=== PATIENT | female | born 1950 | race Caucasian/White ===

== ENCOUNTER 2017-06-17 11:58 | Emergency (ER) | payer MEDICAID, MEDICARE, OTHER ==
[2017-06-17 12:31] VITALS: BP 146/84
--- NOTE | 2017-06-17 17:04 | UC ---
Kevin Nassar Stephanie, scribed for Jerod Narayan MD on 06/17/17 at 1502 . FLU HPI - HPI Summary HPI Summary: The pt is a 67 y/o F presenting to with c/o sore throat that began 1.5 weeks ago. Symptoms include productive cough with green/yellow mucus, rhinorrhea, chest congestion, diaphoresis, wheezing and sinus pressure. The pt denies CP. - History of Current Complaint Chief Complaint: UCRespiratory Stated Complaint: SORE THROAT Time Seen by Provider: 06/17/17 14:32 Hx Obtained From: Patient ?: No Onset/Duration: Lasting Weeks - 1.5, Still Present Pain Intensity: 0 Pain Scale Used: 0-10 Numeric Associated Signs & Symptoms: Positive: Cough - productive with green/yellow mucus. Negative: Fever - Allergy/Home Medications Allergies/Adverse Reactions: Allergies Allergy/AdvReac Type Severity Reaction Status Date / Time No Known Allergies Allergy Verified 06/17/17 12:32 PMH/Surg Hx/FS Hx/Imm Hx Endocrine History: Diabetes Cardiovascular History: Hypertension Respiratory History: Other - Negative: COPD, asthma Other Respiratory History: . - Surgical History Surgical History: Yes Surgery Procedure, Year, and Place: tonsillectomy. right breast lumpectomy benign. vulvar cancer removal (skin cancer) - Family History Known Family History: Positive: Hypertension, Other - lung cancer - Social History Occupation: Retired Lives: At [facility] [employer] Alcohol Use: None Substance Use Type: None Smoking Status (MU): Never Smoked Tobacco Type: Cigarettes Amount Used/How Often: 1 ppd Length of Time of Smoking/Using Tobacco: 44 years Have You Smoked in the Last Year: Yes When Did the Patient Quit Smoking/Using Tobacco: 11/09/13 - Immunization History Most Recent Influenza Vaccination: 2017 Most Recent Pneumonia Vaccination: none Review of Systems Constitutional: Negative Skin: Other - diaphoresis Eyes: Negative ENT: Nasal Discharge, Sinus Pain/Tenderness Respiratory: Cough - productive with green/yellow mucus., Other - wheezing Cardiovascular: Other - chest congestion Gastrointestinal: Negative Genitourinary: Negative Motor: Negative Neurovascular: Negative Musculoskeletal: Negative Neurological: Negative Psychological: Negative All Other Systems Reviewed And Are Negative: Yes Physical Exam Triage Information Reviewed: Yes Vital Signs: Initial Vital Signs Temp 97.0 F 06/17/17 12:26 Pulse 107 06/17/17 12:26 Resp 14 01/21/18 12:26 BP 146/84 06/17/17 12:26 Pulse Ox 98 06/17/17 12:26 Vital Signs Reviewed: Yes - Additional Comments General: well-appearing, no pain distress Skin: warm, color reflects adequate perfusion, dry Head: normal Eyes: EOMI, [place] ENT: rhinorrhea Neck: supple, nontender Respiratory: CTA, breath sounds present Cardiovascular: RRR Abdomen: soft, nontender Bowel: present Musculoskeletal: normal, strength/ROM intact Neurological: normal, sensory/motor intact, A&O x3 Psychological: affect/mood appropriate Flu Course/Dx - Course Course Of Treatment: Medications reviewed. - Differential Dx/Diagnosis Provider Diagnoses: SINUSITIS Discharge - Discharge Plan Condition: Stable Disposition: HOME Prescriptions: Amoxicillin/Clavulanate TAB* [Augmentin TAB 875*] 875 mg PO BID #20 tab Patient Education Materials: Sinusitis (ED) Referrals: Denis Snell MD [Primary Care Provider] - Additional Instructions: FOLLOW UP WITH YOUR DOCTOR. GET RECHECKED FOR ANY WORSENING OF YOUR CONDITION OR QUESTIONS OR CONCERNS. The documentation as recorded by the Kevin gomez Stephanie accurately reflects the service I personally performed and the decisions made by me, Jerod Narayan MD.
== END 2017-06-17 14:42 | disposition home or self-care (01) ==
LOC: UCEAST 11:58
DX: J32.9 Chronic sinusitis, unspecified (principal); R61 Generalized hyperhidrosis; E11.9 Type 2 diabetes mellitus without complications; I10 Essential (primary) hypertension; Z87.891 Personal history of nicotine dependence
CPT/HCPCS: 99212; G0463

== ENCOUNTER 2018-01-30 17:36 | Emergency (ER) | payer OTHER ==
[2018-01-30 17:44] VITALS: BP 160/120
[2018-01-30] MEDS ORDERED: Dexamethasone TAB* 4 MG PO ONE (17:51)
--- NOTE | 2018-01-30 17:53 | UC ---
Respiratory Complaint HPI - HPI Summary HPI Summary: A 68 y/o female presents to [facility] c/o sore throat and cough reaching 6/10 in severity. As per triage, "c/o sore throat and cough for 2 days. Repeat BP 177/ 118". According to the patient, she has been experiencing sore throat (worse in the AM) coupled with productive cough for the past couple days. She denies any runny nose, SOB or CP. She is unsure of fever. She stated that no one is sick at home. PMHx of DM and HBP. SHx of non-smoker and retiree from [employer]. Currently on metformin and other medications. - History of Current Complaint Chief Complaint: UCRespiratory Stated Complaint: THROAT PAIN Time Seen by Provider: 01/30/18 17:45 Hx Obtained From: Patient Onset/Duration: Sudden Onset, Lasting Days, Still Present Timing: Constant Severity Initially: Moderate Severity Currently: Moderate Pain Intensity: 6 Pain Scale Used: 0-10 Numeric Character: Cough: Productive Aggravating Factors: Nothing Alleviating Factors: Nothing Associated Signs And Symptoms: Positive: Negative - Allergies/Home Medications Allergies/Adverse Reactions: Allergies Allergy/AdvReac Type Severity Reaction Status Date / Time No Known Allergies Allergy Verified 01/30/18 17:44 PMH/Surg Hx/FS Hx/Imm Hx Endocrine History: Diabetes - POSITIVE Cardiovascular History: Hypertension - POSITIVE - Surgical History Surgical History: Yes Surgery Procedure, Year, and Place: tonsillectomy. right breast lumpectomy benign. vulvar cancer removal (skin cancer) - Family History Known Family History: Positive: Hypertension, Other - lung cancer - Social History Alcohol Use: None Substance Use Type: None Smoking Status (MU): Never Smoked Tobacco Type: Cigarettes Amount Used/How Often: 1 ppd Length of Time of Smoking/Using Tobacco: 44 years Have You Smoked in the Last Year: Yes When Did the Patient Quit Smoking/Using Tobacco: 11/09/13 - Immunization History Most Recent Influenza Vaccination: 2017 Most Recent Pneumonia Vaccination: none Review of Systems Constitutional: Negative Skin: Negative Eyes: Negative ENT: Sore Throat Respiratory: Cough Cardiovascular: Negative Gastrointestinal: Negative Genitourinary: Negative Motor: Negative Neurovascular: Negative Musculoskeletal: Negative Neurological: Negative Psychological: Negative Is Patient Immunocompromised?: No All Other Systems Reviewed And Are Negative: Yes Physical Exam - Summary Physical Exam Summary: Appearance: Well appearing, no pain distress Skin: warm, dry, reflects adequate perfusion Head/face: normal Eyes: EOMI, [place] ENT: Bilateral TM are gabino, mild throat erythema with yellowish mucous in the back of pharynx. No adenopathy. Neck: supple, non-tender Respiratory: CTA, breath sounds present, lungs are clear, no wheezing, wet sound cough Cardiovascular: tachycardic, pulses symmetrical Abdomen: non-tender, soft Bowel Sounds: present Musculoskeletal: normal, strength/ROM intact Neuro: normal, sensory motor intact, A&Ox3 Triage Information Reviewed: Yes Vital Signs: Initial Vital Signs Temp 98.9 F 01/30/18 17:40 Pulse 99 01/30/18 17:40 Resp 18 01/30/18 17:40 BP 160/120 01/30/18 17:40 Pulse Ox 98 01/30/18 17:40 Vital Signs Reviewed: Yes UC Diagnostic Evaluation - Laboratory O2 Sat by Pulse Oximetry: 98 Respiratory Course/Dx - Course Course Of Treatment: Patient with history of tonsillectomy now with URI symptoms including postnasal drip/pharyngeal mucus likely causing her some sore throat. Diabetic so I will dose only Decadron here for discomfort and then put her on decongestants. She will have her doctor recheck her blood pressure after she is well. - Differential Dx/Diagnosis Differential Diagnosis/HQI/PQRI: Lower Resp Infection, Other - URI Provider Diagnoses: URI and elevated blood pressure. Discharge - Sign-Out/Discharge Documenting (check all that apply): Patient Departure - DISCHARGE All imaging exams completed and their final reports reviewed: No Studies - Discharge Plan Condition: Improved Disposition: HOME Prescriptions: guaiFENesin ER TAB [Mucinex*] 600 mg PO BID PRN #20 tab.er PRN Reason: Congestion Guaifenesin/Pseudoephedrne HCl [Mucinex D ER 600-60 mg Tablet] 1 each PO BID PRN #6 tab.er.12h PRN Reason: Congestion Oxymetazoline 0.05% NASAL SPR* [Afrin 0.05% NASAL SPRAY*] 1 spray BOTH NARES Q12H PRN #1 btl PRN Reason: Congestion Patient Education Materials: Upper Respiratory Infection (ED), Hypertension (ED ) Referrals: Denis Snell MD [Primary Care Provider] - Additional Instructions: Have your blood pressure recheck by your doctor when you're not ill, by next week. Stay well-hydrated. Return with fever, difficulty breathing, worse or other concerns. - Billing Disposition and Condition Condition: IMPROVED Disposition: Home - Attestation Statements Document Initiated by Juan Francisco: Yes Documenting Scribe: Donato Alvarez Provider For Whom Juan Francisco is Documenting (Include Credential): Jonathan Fontanez MD Scribe Attestation: I, Donato Alvarez, scribed for Jonathan Fontanez MD on 01/30/18 at 1854. Scribe Documentation Reviewed: Yes Provider Attestation: The documentation as recorded by the Donato gomez accurately reflects the service I personally performed and the decisions made by me, Jonathan Fontanez MD
== END 2018-01-30 18:15 | disposition home or self-care (01) ==
LOC: UCEAST 17:36
DX: J06.9 Acute upper respiratory infection, unspecified (principal); R03.0 Elevated blood-pressure reading, without diagnosis of hypertension; Z87.891 Personal history of nicotine dependence
CPT/HCPCS: 99212; G0463; J8540

== ENCOUNTER 2019-06-01 14:25 | Emergency (ER) | payer SELFPAY ==
[2019-06-01 14:45] VITALS: BP 156/87
--- NOTE | 2019-06-01 15:06 | UC ---
Hand/Wrist HPI - HPI Summary HPI Summary: Patient is a 69yo female presenting with L wrist pain after she fell backwards this afternoon while jumping rope. Notes pain worse when it happened. Now sharp pain mostly with wrist movement and to touch. Denies radiating pain. Denies numbness and tingling. Denies swelling and bruising. Notes decreased ROM of wrist d/t pain. - History Of Current Complaint Chief Complaint: UCUpperExtremity Stated Complaint: WRIST INJURY Hx Obtained From: Patient Pain Intensity: 8 - Allergies/Home Medications Allergies/Adverse Reactions: Allergies Allergy/AdvReac Type Severity Reaction Status Date / Time No Known Allergies Allergy Verified 06/01/19 14:43 Home Medications: Home Medications Pumpkin Seed Extract/Soy Germ [Azo Bladder Control Capsule] 1 tab PO DAILY PRN 06/01/19 [History Confirmed 06/01/19] PMH/Surg Hx/FS Hx/Imm Hx Cardiovascular History: Hypertension - Surgical History Surgical History: Yes Surgery Procedure, Year, and Place: tonsillectomy. right breast lumpectomy benign. vulvar cancer removal (skin cancer) - Family History Known Family History: Positive: Hypertension, Other - lung cancer - Social History Alcohol Use: None Substance Use Type: None Smoking Status (MU): Never Smoked Tobacco Type: Cigarettes Amount Used/How Often: 1 ppd Length of Time of Smoking/Using Tobacco: 44 years Have You Smoked in the Last Year: Yes When Did the Patient Quit Smoking/Using Tobacco: 11/09/13 - Immunization History Most Recent Influenza Vaccination: 2017 Most Recent Pneumonia Vaccination: none Review of Systems All Other Systems Reviewed And Are Negative: Yes Constitutional: Positive: Negative Skin: Negative: Bruising Respiratory: Positive: Negative Cardiovascular: Positive: Negative Musculoskeletal: Positive: Arthralgia - L wrist, Decreased ROM - L wrist d/t pain. Negative: Edema Neurological: Negative: Paresthesia, Numbness Physical Exam Triage Information Reviewed: Yes Appearance: Well-Appearing, No Pain Distress, Well-Nourished Vital Signs: Initial Vital Signs Temp 98.1 F 06/01/19 14:35 Pulse 109 06/01/19 14:35 Resp 16 06/01/19 14:35 BP 156/87 06/01/19 14:35 Pulse Ox 97 06/01/19 14:35 Vital Signs Reviewed: Yes Eyes: Positive: Conjunctiva Clear ENT: Positive: Hearing grossly normal Neck: Positive: Supple Respiratory Exam: Normal Respiratory: Positive: Lungs clear, Normal breath sounds, No respiratory distress Cardiovascular Exam: Normal Cardiovascular: Positive: RRR, Pulses Normal - strong radial pulses b/l, Brisk Capillary Refill - <2 sec Musculoskeletal: Positive: Strength Intact - 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 L hand Radiology Interpretation Completed By: Radiologist Summary of Radiographic Findings: IMPRESSION: No fracture of left hand is noted. Hand/Wrist Course/Dx - Course Course Of Treatment: Suspected fracture of metaphysis of L radius. I applied sugar tong splint with ortho glass and provided with sling. Instructed patient to keep splint on until follow up and continue with symptomatic treatment Instructed to follow up with ortho as soon as possible for further eval and treatment. Instructed to go to ED with severe pain, numbness, cold extremity, or inability to move the hand/ wrist. Patient voiced understanding and agreed with treatment plan. - Differential Dx/Diagnosis Provider Diagnosis: Closed fracture of metaphysis of distal end of left radius Discharge ED - Sign-Out/Discharge Documenting (check all that apply): Patient Departure All imaging exams completed and their final reports reviewed: Yes - Discharge Plan Condition: Stable Disposition: HOME Patient Education Materials: Wrist Fracture in Adults (ED) Referrals: Ramírez Whitaker MD [Medical Doctor] - As Soon As Possible Additional Instructions: As discussed, your xrays showed a suspected fracture of your wrist. Keep the splint on until you are able to follow up with orthopedics. Rest, ice, and elevate to help alleviate pain and swelling. Follow up with the orthopedic referral listed below as soon as possible for further evaluation and treatment. Go to the emergency room if you experience severe pain, the hand becomes cold and numb, or you are unable to move the hand or wrist. - Billing Disposition and Condition Condition: STABLE Disposition: Home
== END 2019-06-01 16:00 | disposition home or self-care (01) ==
LOC: UCEAST 14:25
DX: S52.592A Other fractures of lower end of left radius, initial encounter for closed fracture (principal); W18.30XA Fall on same level, unspecified, initial encounter; Y93.56 Activity, jumping rope; Y92.9 Unspecified place or not applicable; I10 Essential (primary) hypertension; Z87.891 Personal history of nicotine dependence
CPT/HCPCS: 25600; 99212; G0463